=== PATIENT | male | born 1990 | race Caucasian/White ===

== ENCOUNTER 2020-08-21 10:40 | Emergency (ER) | payer OTHER ==
[~2020-08-21] VITALS: Ht 177.8 cm; Wt 86.2 kg
[2020-08-21 11:05] VITALS: BP_SYST 129
--- NOTE | 2020-08-21 11:32 | NUR ---
PT WITH LAY MIDWIFE, WOUND CARE BEING DONE AT THIS TIME
--- NOTE | 2020-08-21 11:44 | NUR ---
TAKEN TO RADIOLOGY AMBULATORY
--- NOTE | 2020-08-21 12:00 | NUR ---
DR RAVI IN TO ASSESS
[2020-08-21] MEDS ORDERED: CEPH-568 PO (12:34)
[2020-08-21] MEDS ORDERED: IBUP-1971 PO (12:35)
[2020-08-21] MEDS: KETOROLAC TROMETHAMINE 60 MG/2 ML VIAL IM ONE (13:07)
[2020-08-21] MEDS: DIPH-TET-PERTUS Vaccine 0.5 ML VIAL (ADACEL) I.M. ONE (13:10)
[2020-08-21 13:20] VITALS: BP_SYST 129
--- NOTE | 2020-08-21 13:21 | NUR ---
Patient given written and verbal discharge instructions and verbalizes understanding. ER MD discussed with patient the results and treatment provided. Patient in stable condition. ID arm band removed. Rx ABX given. Patient educated on pain management and to follow up with PMD. Pain Scale . Opportunity for questions provided and answered. Medication side effect fact sheet provided.
== END 2020-08-21 13:20 | disposition home or self-care (01) ==
LOC: SED 10:40
DX: S61.032A Puncture wound without foreign body of left thumb without damage to nail, initial encounter (principal); W22.8XXA Striking against or struck by other objects, initial encounter; Y93.89 Activity, other specified; Y92.89 Other specified places as the place of occurrence of the external cause; Y99.8 Other external cause status
CPT/HCPCS: 73130; 90471; 90715; 96372; 99284; J1885